=== PATIENT | male | born 1980 | race Caucasian/White ===

== ENCOUNTER 2016-08-22 14:57 | Emergency (ER) | payer MEDICARE ==
[2016-08-22 15:14] VITALS: BP 151/99
[2016-08-22] MEDS ORDERED: Tetracaine 0.5% OPTH.SOL 15ML* BTL ONE (15:20)
[2016-08-22] MEDS ORDERED: BSS OPTH.SOL* BTL ONE (15:20)
[2016-08-22] MEDS ORDERED: Fluorescein Sodium TOPICAL* 1 MG TEST ONE (15:20)
--- NOTE | 2016-08-22 15:41 | UC ---
Eye Complaint HPI - HPI Summary HPI Summary: While vacuuming had sudden FB sensation in R eye. Now has copious clear drainage , photophobia, and cannot open eye due to discomfort. Pt has hx of glaucoma with surgery, hemianopsia -- sees Dr. Ferreira in [place]. - History of Current Complaint Chief Complaint: UCEye Stated Complaint: F B EYE Time Seen by Provider: 08/22/16 15:07 Hx Obtained From: Patient Onset/Duration: Sudden Onset Timing: Constant Severity Initially: Moderate Severity Currently: Moderate Location of Injury: Globe Character: Sharp, Foreign Body Sensation Aggravating Factor(s): Light Alleviating Factor(s): Darkness Associated Signs And Symptoms: Positive: Drainage (Clear) Related History: Glaucoma - Risk Factors Penetrating Injury Risk Factor: Negative Globe Rupture Risk Factors: Negative Acute Glaucoma Risk Factors: Negative - Allergies/Home Medications Allergies/Adverse Reactions: Allergies Allergy/AdvReac Type Severity Reaction Status Date / Time No Known Allergies Allergy Verified 08/22/16 15:14 Home Medications: Home Medications Carbamazepine [Carbatrol] 08/22/16 [History] Leviteractram 08/22/16 [History] Sodium Chloride * 08/22/16 [History Confirmed 08/22/16] PMH/Surg Hx/FS Hx/Imm Hx Previously Healthy: No - CP, had surgery for glaucoma and has hemianopsia - Surgical History Surgical History: Yes Surgery Procedure, Year, and Place: Eyes - Family History Known Family History: Negative: Blood Disorder - Social History Lives: With Family Alcohol Use: None Substance Use Type: None Smoking Status (MU): Never Smoked Tobacco Review of Systems Constitutional: Negative Skin: Negative Eyes: Drainage, Eye Redness, Photophobia ENT: Negative Respiratory: Negative Cardiovascular: Negative Gastrointestinal: Negative Genitourinary: Negative Motor: Negative Neurovascular: Negative Musculoskeletal: Negative Neurological: Negative Psychological: Negative All Other Systems Reviewed And Are Negative: Yes Physical Exam Triage Information Reviewed: Yes Appearance: Well-Nourished, Pain Distress - mod Vital Signs: Initial Vital Signs Temp 97.4 F 08/22/16 15:09 Pulse 72 08/22/16 15:09 Resp 18 08/22/16 15:09 BP 151/99 08/22/16 15:09 Pulse Ox 98 08/22/16 15:09 Eye Exam: Other - PERRL; fluorescein dye test notable for uptake over medial 1/ 3 of R cornea. No FB noted on penlight or fluorescein tests Eyes: Positive: Discharge - copious tearing R eye ENT Exam: Normal ENT: Positive: Normal ENT inspection, Hearing grossly normal, Pharynx normal, TMs normal Dental Exam: Normal Neck exam: Normal Respiratory Exam: Normal Respiratory: Positive: Chest non-tender, Lungs clear, Normal breath sounds, No respiratory distress, No accessory muscle use Cardiovascular Exam: Normal Cardiovascular: Positive: RRR, No Murmur Psychological Exam: Normal Skin Exam: Normal Eye Complaint Course/Dx - Differential Dx/Diagnosis Provider Diagnoses: R eye corneal abrasion Discharge - Discharge Plan Condition: Stable Disposition: HOME Prescriptions: Erythromycin TOPICAL GEL* [Erythromycin OPTH OINT*] 1 applic RIGHT EYE QID #1 oint Patient Education Materials: Corneal Abrasion (ED) Referrals: Krupa Ferreira MD [Medical Doctor] - 2 Days Additional Instructions: Please see Dr. Ferreira for a recheck on Wednesday. If you have severe or worsening symptoms in the meantime, I recommend you go to [facility] to see an liability analyst.
== END 2016-08-22 15:50 | disposition home or self-care (01) ==
LOC: UCEAST 14:57
DX: S05.01XA Injury of conjunctiva and corneal abrasion without foreign body, right eye, initial encounter (principal); X58.XXXA Exposure to other specified factors, initial encounter; Y93.E3 Activity, vacuuming; Y92.9 Unspecified place or not applicable
CPT/HCPCS: 99212; A9270-GY; G0463

== ENCOUNTER 2017-04-17 20:56 | Emergency (ER) | payer MEDICARE ==
[2017-04-17 21:06] VITALS: BP 134/67
--- NOTE | 2017-04-17 21:09 | UC ---
Bite Injury/Animal HPI - HPI Summary HPI Summary: 37 YEAR OLD MALE PRESENTS WITH COMPLAINS OF TICK (2) ON HIS TORSO. - History of Current Complaint Chief Complaint: UCSkin Stated Complaint: TICK Time Seen by Provider: 04/17/17 21:08 Hx Obtained From: Patient Severity Currently: Moderate Severity Initially: Moderate Pain Scale Used: 0-10 Numeric - 5 Onset/Duration: Sudden Onset Type of Bite: Animal - TICK - Allergies/Home Medications Allergies/Adverse Reactions: Allergies Allergy/AdvReac Type Severity Reaction Status Date / Time No Known Allergies Allergy Verified 04/17/17 21:06 PMH/Surg Hx/FS Hx/Imm Hx Previously Healthy: Yes - Surgical History Surgical History: Yes Surgery Procedure, Year, and Place: Eyes-MADE A HOLE IN EYE TO RELEASE PRESSURE , NO IMPLANTS. ERCP - REMOVED GALL STONES - Family History Known Family History: Negative: Blood Disorder - Social History Alcohol Use: None Substance Use Type: None Smoking Status (MU): Never Smoked Tobacco - Immunization History Most Recent Influenza Vaccination: none Review of Systems Constitutional: Negative Skin: Negative Eyes: Negative ENT: Sore Throat, Nasal Discharge, Sinus Congestion, Sinus Pain/Tenderness Respiratory: Negative Cardiovascular: Negative Gastrointestinal: Negative Genitourinary: Negative Motor: Negative Neurovascular: Negative Musculoskeletal: Negative Neurological: Negative Psychological: Negative All Other Systems Reviewed And Are Negative: Yes Physical Exam Triage Information Reviewed: Yes Appearance: Well-Appearing Vital Signs: Initial Vital Signs Temp 36.4 C 04/17/17 21:01 Pulse 59 04/17/17 21:01 Resp 17 04/17/17 21:01 BP 134/67 04/17/17 21:01 Pulse Ox 100 04/17/17 21:01 Vital Signs Reviewed: Yes Eye Exam: Normal ENT Exam: Normal Dental Exam: Normal Neck exam: Normal Neck: Positive: 1 Respiratory Exam: Normal Cardiovascular Exam: Normal Abdominal Exam: Normal Musculoskeletal Exam: Normal Neurological Exam: Normal Psychological Exam: Normal Skin Exam: Normal Bite Injury Course/Dx - Differential Dx/Diagnosis Provider Diagnoses: TICK BITES Discharge - Discharge Plan Condition: Stable Disposition: HOME Patient Education Materials: Lyme Disease (ED), Insect Bite or Sting (ED), Tick Bite (ED) Referrals: Ana Genao MD [Primary Care Provider] -
[2017-04-17] MEDS ORDERED: DOXYcycline CAP(*) 100 MG PO ONE (21:15)
[2017-04-18 14:28] LABS: Hematocrit 43 % (42-52); Hemoglobin 14.8 g/dl (14.0-18.0); Mean Corpuscular HGB Conc 34 g/dl (31-36); Mean Corpuscular Hemoglobin 31 pg (27-31); Mean Corpuscular Volume 91 fL (80-94); Mean Platelet Volume 9 um3 (7.4-10.4); Red Blood Count 4.76 10^6/ul (4.0-5.4); Red Cell Distribution Width 12 % (10.5-15); White Blood Count 8.9 10^3/ul (3.5-10.8)
[2017-04-18 14:31] LABS: Add Diff/Slide Review? Slide Review Added; Comments Flag Yes
[2017-04-18 14:39] LABS: Albumin 4.6 g/dL (3.2-5.2); Calcium 9.5 mg/dL (8.6-10.3); EGFR African American 138.4 (>60); EGFR Non-African American 107.6 (>60); Globulin 2.7 g/dL (2-4); Potassium 3.8 mmol/L (3.5-5.0); Total Bilirubin 0.6 mg/dL (0.2-1.0); Total Protein 7.3 g/dL (6.4-8.9)
== END 2017-04-17 21:42 | disposition home or self-care (01) ==
LOC: UCCORT 20:56
DX: S30.860A Insect bite (nonvenomous) of lower back and pelvis, initial encounter (principal); W57.XXXA Bitten or stung by nonvenomous insect and other nonvenomous arthropods, initial encounter
CPT/HCPCS: 36415; 80053; 85025; 86618; 99212; A9270-GY; G0463